=== PATIENT | female | born 1940 | race Caucasian/White ===

== ENCOUNTER 2018-01-13 10:01 | Outpatient (CLI) | payer BC | END 2018-01-13 10:02 | disposition home or self-care (01) | LOC: BICMAMMO 10:01 | PROVIDERS: ATTEND Internal Medicine Hematology & Oncology | DX: Z08 Encounter for follow-up examination after completed treatment for malignant neoplasm (principal); Z85.3 Personal history of malignant neoplasm of breast | CPT/HCPCS: 77066; G0279 ==

== ENCOUNTER 2018-01-29 08:16 | Outpatient (CLI) | payer BC, MEDICARE | END 2018-01-29 08:17 | disposition home or self-care (01) | LOC: BICMAMMO 08:16 | PROVIDERS: ATTEND Family Medicine | DX: M85.869 Other specified disorders of bone density and structure, unspecified lower leg (principal) | CPT/HCPCS: 77080 ==

== ENCOUNTER 2018-11-09 11:47 | Outpatient (CLI) | payer BC ==
--- NOTE | 2018-11-09 14:05 | RAD ---
RADIOGRAPH LEFT ANKLE 3 VIEWS: Date: 11/09/18 HISTORY: 78-year-old female with acute left ankle pain, M25.572, status post twisting injury 9 days ago. Persi stent swelling. FINDINGS: No evidence of fracture. Ankle mortise is congruent. Diffuse soft tissue edema. Talar dome is maintai igor. Mild DJD. IMPRESSION: 1. No fracture. 2. Diffuse soft tissue edema. POS: JERILYN
== END 2018-11-09 11:48 | disposition home or self-care (01) ==
LOC: BICRAD 11:47
PROVIDERS: ATTEND Family Medicine
DX: M25.572 Pain in left ankle and joints of left foot (principal); R60.9 Edema, unspecified

== ENCOUNTER 2019-01-14 10:16 | Outpatient (CLI) | payer BC ==
--- NOTE | 2019-01-14 11:12 | MMO ---
Bilateral MAMMO Bilat Diag [facility]. CLINICAL HISTORY: Patient is 78 years old and is seen for diagnostic exam. The patient has no family history of breast cancer. 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 VIEWS: The views performed were: bilateral craniocaudal with tomosynthesis; bilateral mediolateral oblique with tomosynthesis; and bilateral mediolateral. FILMS COMPARED: The present examination has been compared to prior imaging studies performed at on 01/09/2017 and 01/13/2018. MAMMOGRAM FINDINGS: There are scattered fibroglandular densities. There is an area of architectural distortion with associated post-surgical scar seen in the right breast. There are no suspicious masses, suspicious calcifications, or new areas of architectural distortion. IMPRESSION: A ROUTINE FOLLOW-UP MAMMOGRAM IN 1 YEAR IS RECOMMENDED. THE RESULTS OF THIS EXAM WERE SENT TO THE PATIENT. ACR BI-RADS Category 2 - Benign finding MAMMOGRAPHY NOTE: 1. A negative mammogram report should not delay a biopsy if a dominant of clinically suspicious mass is present. 2. Approximately 10% to 15% of breast cancers are not detected by mammography. 3. Adenosis and dense breasts may obscure an underlying neoplasm.
== END 2019-01-14 10:17 | disposition home or self-care (01) ==
LOC: BICMAMMO 10:16
PROVIDERS: ATTEND Family Medicine
DX: C50.811 Malignant neoplasm of overlapping sites of right female breast (principal)
CPT/HCPCS: 77066; G0279

== ENCOUNTER 2020-01-17 | Outpatient (CLI) | payer MEDICARE, BC | END 2020-01-17 09:19 | disposition home or self-care (01) | DX: C50.811 Malignant neoplasm of overlapping sites of right female breast (principal) ==

== ENCOUNTER 2021-01-18 08:16 | Outpatient (CLI) | payer MEDICARE, BC | END 2021-01-18 08:17 | disposition home or self-care (01) | LOC: BICMAMMO 08:16 | PROVIDERS: ATTEND Family Medicine | DX: Z08 Encounter for follow-up examination after completed treatment for malignant neoplasm (principal); Z85.3 Personal history of malignant neoplasm of breast | CPT/HCPCS: 77066; G0279 ==

== ENCOUNTER 2021-01-19 17:21 | Inpatient (IN) | payer MEDICARE, BC ==
[~2021-01-19 17:21] MED LIST: Iopamidol-370 76% 500 ML 1 ML ONE
[2021-01-19 19:01] LABS: #Lymphocytes 0.8 thou/uL (1.20-3.40); #Monocytes 0.7 thou/uL (0.11-0.59); #Neutrophils 14.5 thou/uL (1.40-6.50); %Eosinophils 0.1 % (0.0-10.0); %Lymphocytes 5.1 % (21.0-51.0); %Monocytes 4.6 % (0.0-10.0); %Neutrophils 90.2 % (42.0-75.0); Hemoglobin 14.4 g/dL (12.0-16.0); Mean Corpuscular HGB CONC 36.1 g/dL (32.0-36.0); Mean Corpuscular Hemoglobin 34.3 pg (27.0-31.0); Mean Platelet Volume 6.2 fL (7.4-10.4); Platelet Count 301 thou/uL (130-400); RBC Distribution Width 11.1 % (11.5-14.5)
[2021-01-19 19:24] LABS: ALT (SGPT) 19 U/L (8-55); AST (SGOT) 26 U/L (5-34); Albumin 3.7 g/dL (3.4-4.8); Alkaline Phosphatase 73 U/L (40-110); Anion Gap 12 mmol/L (10-20); BUN (Urea Nitrogen) 9 mg/dL (9.8-20.1); Bilirubin, Total 0.6 mg/dL (0.2-1.2); Calc. Creatinine Clearance 0 mL/min (70-130); Calcium 8.6 mg/dL (7.8-10.44); Carbon Dioxide 24 mmol/L (23-31); Chloride 89 mmol/L (98-107); Globulin 2.8 g/dL (2.4-3.5); Glucose 132 mg/dL (83-110); Magnesium 1.8 mg/dL (1.6-2.6); Potassium 3.9 mmol/L (3.5-5.1); Protein, Total 6.5 g/dL (5.8-8.1); Sodium 121 mmol/L (136-145)
[2021-01-19 19:53] LABS: Bacteria/HPF 2+ HPF (None Seen); Bilirubin Negative (Negative); Blood, Urine Negative (Negative); Clarity Clear (Clear); Glucose, Urine (Dipstick) 30 mg/dL (Negative); Ketone, Urine 20 mg/dL (Negative); Leukocyte 500 Leu/uL (Negative); Nitrite Negative (Negative); Protein, Urine (Dipstick) Negative (Neg-Trace); RBC/HPF 0-3 HPF (0-3); Specific Gravity, Urine 1.006 (1.002-1.036); Urobilinogen Normal mg/dL (Less than 2); pH, Urine 7.5 (5.0-9.0)
[2021-01-19] MEDS ORDERED: Ondansetron PF 4 MG/2 ML Vial IVP PRN (20:33)
[2021-01-19] MEDS ORDERED: HYDROcodone/Acetaminophen 7.5/325 mg Tablet PO PRN (20:33)
[2021-01-19] MEDS ORDERED: Bisacodyl 5 MG TAB PO PRN (20:33)
[2021-01-19] MEDS ORDERED: Morphine 2 MG/ML VIAL SLOW IVP PRN (20:34)
[2021-01-19] MEDS ORDERED: TOLVAPTAN 30 MG TAB PO SCH (21:15)
[2021-01-19] MEDS ORDERED: cefTRIAXone\\ROCEPHIN 2 GM VIAL ONE (21:29)
[2021-01-19] MEDS ORDERED: Vancomycin 1 GM/200 ML BAG ONE (21:29)
[2021-01-19 21:50] LABS: SARS-CoV-2 NAA Rapid Test Not Detected (NotDetected)
[2021-01-19 23:34] VITALS: BMI 21.9
[2021-01-19] MEDS: Sodium Chloride 0.9% 1,000 ML IV SCH (23:38)
[2021-01-19] MEDS: Cefepime 1 GM in Sodium Chloride 0.9% 100 ML IVPB SCH (23:40)
[2021-01-19] MEDS: Apixaban 5 MG TAB PO SCH (23:42)
[2021-01-20 00:24] LABS: Potassium, Urine 18.9 mmol/L
[2021-01-20 04:03] LABS: Albumin 3.6 g/dL (3.4-4.8); Anion Gap 12 mmol/L (10-20); BUN (Urea Nitrogen) 6 mg/dL (9.8-20.1); BUN/Creatinine Ratio 10.53; Calc. Creatinine Clearance 73 mL/min (70-130); Calcium 8.6 mg/dL (7.8-10.44); Carbon Dioxide 21 mmol/L (23-31); Chloride 94 mmol/L (98-107); Glucose 124 mg/dL (83-110); Phosphorus 2.7 mg/dL (2.3-4.7); Potassium 3.6 mmol/L (3.5-5.1); Sodium 123 mmol/L (136-145)
[2021-01-20] MEDS: Cefepime 1 GM in Sodium Chloride 0.9% 100 ML IVPB SCH ×2 (08:05→21:47)
[2021-01-20] MEDS: Apixaban 5 MG TAB PO SCH ×2 (08:05→21:46)
[2021-01-20] MEDS: Famotidine 20 MG TAB PO SCH ×2 (08:05→21:47)
[2021-01-20] MEDS ORDERED: TOLVAPTAN 30 MG TAB PO SCH (09:00)
[2021-01-20 09:54] LABS: Anion Gap 14 mmol/L (10-20); BUN (Urea Nitrogen) 5 mg/dL (9.8-20.1); Calc. Creatinine Clearance 65 mL/min (70-130); Calcium 9.1 mg/dL (7.8-10.44); Carbon Dioxide 23 mmol/L (23-31); Chloride 95 mmol/L (98-107); Glucose 128 mg/dL (83-110); Potassium 3.3 mmol/L (3.5-5.1); Sodium 129 mmol/L (136-145)
[2021-01-20 13:30] LABS: Anion Gap 12 mmol/L (10-20); BUN (Urea Nitrogen) 5 mg/dL (9.8-20.1); Calc. Creatinine Clearance 63 mL/min (70-130); Calcium 8.8 mg/dL (7.8-10.44); Carbon Dioxide 25 mmol/L (23-31); Chloride 98 mmol/L (98-107); Glucose 136 mg/dL (83-110); Potassium 3.2 mmol/L (3.5-5.1); Sodium 132 mmol/L (136-145)
[2021-01-20] MEDS ORDERED: hydrALAZINE 20 MG/ML VIAL SLOW IVP PRN (14:06)
[2021-01-20] MEDS: Acetaminophen 325 MG TAB PO PRN (14:08)
[2021-01-20] MEDS: Sodium Chloride 0.9% 1,000 ML IV SCH (15:55)
[2021-01-20] MEDS ORDERED: Potassium Chloride 20 MEQ TAB PO SCH (16:00)
[2021-01-20] MEDS ORDERED: Dextrose 5% in Water 1,000 ML IV SCH ×3 (16:00→21:43)
[2021-01-20] MEDS ORDERED: Carvedilol 3.125 MG TAB PO SCH (17:00)
[2021-01-20 17:29] LABS: Anion Gap 14 mmol/L (10-20); BUN (Urea Nitrogen) 4 mg/dL (9.8-20.1); Calc. Creatinine Clearance 66 mL/min (70-130); Carbon Dioxide 23 mmol/L (23-31); Chloride 98 mmol/L (98-107); Glucose 116 mg/dL (83-110); Sodium 132 mmol/L (136-145)
[2021-01-20 21:26] LABS: Anion Gap 13 mmol/L (10-20); BUN (Urea Nitrogen) 4 mg/dL (9.8-20.1); Calc. Creatinine Clearance 66 mL/min (70-130); Calcium 8.5 mg/dL (7.8-10.44); Carbon Dioxide 20 mmol/L (23-31); Chloride 105 mmol/L (98-107); Glucose 149 mg/dL (83-110); Potassium 3.5 mmol/L (3.5-5.1); Sodium 134 mmol/L (136-145)
[2021-01-20] MEDS: Potassium Chloride 20 MEQ TAB PO SCH (21:47)
[2021-01-20] MEDS: Zolpidem Tartrate 5 MG TAB PO PRN (21:47)
[2021-01-21] MEDS: Potassium Chloride 20 MEQ TAB PO SCH (00:12)
[2021-01-21 04:04] LABS: #Basophils 0.1 thou/uL (0.0-0.2); #Eosinphils 0.1 thou/uL (0.0-0.7); #Lymphocytes 1.5 thou/uL (1.20-3.40); #Monocytes 1.1 thou/uL (0.11-0.59); #Neutrophils 11.4 thou/uL (1.40-6.50); %Basophils 0.4 % (0.0-1.0); %Eosinophils 0.4 % (0.0-10.0); %Lymphocytes 10.3 % (21.0-51.0); %Neutrophils 80.8 % (42.0-75.0); Hemoglobin 14.6 g/dL (12.0-16.0); Mean Corpuscular HGB CONC 34.4 g/dL (32.0-36.0); Mean Corpuscular Hemoglobin 33.3 pg (27.0-31.0); Mean Corpuscular Volume 96.8 fL (78.0-98.0); Mean Platelet Volume 6.7 fL (7.4-10.4); Platelet Count 299 thou/uL (130-400); RBC Distribution Width 11.4 % (11.5-14.5); Red Blood Cell (RBC) Count 4.37 mill/uL (4.20-5.40); White Blood Cell (WBC) Count 14.1 thou/uL (4.8-10.8)
[2021-01-21 04:23] LABS: Anion Gap 11 mmol/L (10-20); BUN (Urea Nitrogen) 5 mg/dL (9.8-20.1); Calc. Creatinine Clearance 68 mL/min (70-130); Carbon Dioxide 24 mmol/L (23-31); Chloride 102 mmol/L (98-107); Glucose 105 mg/dL (83-110); Magnesium 1.9 mg/dL (1.6-2.6); Potassium 4.4 mmol/L (3.5-5.1); Sodium 133 mmol/L (136-145)
[2021-01-21] MEDS ORDERED: Amlodipine 5 MG TAB PO SCH ×2 (09:00→10:15)
[2021-01-21] MEDS: Carvedilol 6.25 MG TAB PO SCH ×2 (09:14→17:26)
[2021-01-21] MEDS: Famotidine 20 MG TAB PO SCH ×2 (09:15→21:34)
[2021-01-21] MEDS: Cefepime 1 GM in Sodium Chloride 0.9% 100 ML IVPB SCH (09:15)
[2021-01-21] MEDS: Apixaban 5 MG TAB PO SCH ×2 (09:15→21:35)
[2021-01-21] MEDS: Acetaminophen 325 MG TAB PO PRN (14:09)
[2021-01-21 15:21] LABS: Anion Gap 12 mmol/L (10-20); BUN (Urea Nitrogen) 5 mg/dL (9.8-20.1); Calc. Creatinine Clearance 66 mL/min (70-130); Calcium 9.5 mg/dL (7.8-10.44); Carbon Dioxide 27 mmol/L (23-31); Chloride 93 mmol/L (98-107); Glucose 132 mg/dL (83-110); Potassium 4.1 mmol/L (3.5-5.1); Sodium 128 mmol/L (136-145)
[2021-01-21] MEDS: Ciprofloxacin 500 MG TAB PO SCH (21:34)
[2021-01-21] MEDS: Zolpidem Tartrate 5 MG TAB PO PRN (21:35)
[2021-01-22] MEDS: Ciprofloxacin 500 MG TAB PO SCH ×2 (06:07→21:33)
[2021-01-22 06:15] LABS: #Eosinphils 0.1 thou/uL (0.0-0.7); #Lymphocytes 1.2 thou/uL (1.20-3.40); #Monocytes 1.2 thou/uL (0.11-0.59); #Neutrophils 11.7 thou/uL (1.40-6.50); %Basophils 0.1 % (0.0-1.0); %Eosinophils 0.6 % (0.0-10.0); %Lymphocytes 8.6 % (21.0-51.0); %Monocytes 8.7 % (0.0-10.0); Mean Corpuscular HGB CONC 34.3 g/dL (32.0-36.0); Mean Corpuscular Hemoglobin 32.9 pg (27.0-31.0); Mean Platelet Volume 6.4 fL (7.4-10.4); Platelet Count 302 thou/uL (130-400); RBC Distribution Width 11.2 % (11.5-14.5); Red Blood Cell (RBC) Count 4.26 mill/uL (4.20-5.40); White Blood Cell (WBC) Count 14.3 thou/uL (4.8-10.8)
[2021-01-22 06:51] LABS: Anion Gap 12 mmol/L (10-20); BUN (Urea Nitrogen) 9 mg/dL (9.8-20.1); Calc. Creatinine Clearance 53 mL/min (70-130); Calcium 8.9 mg/dL (7.8-10.44); Carbon Dioxide 22 mmol/L (23-31); Chloride 93 mmol/L (98-107); Glucose 109 mg/dL (83-110); Potassium 3.8 mmol/L (3.5-5.1); Sodium 123 mmol/L (136-145)
[2021-01-22] MEDS: Apixaban 5 MG TAB PO SCH ×2 (08:07→21:33)
[2021-01-22] MEDS: Amlodipine 10 MG TAB PO SCH (08:07)
[2021-01-22] MEDS: Famotidine 20 MG TAB PO SCH ×2 (08:07→21:33)
[2021-01-22] MEDS: Carvedilol 6.25 MG TAB PO SCH ×2 (08:07→15:40)
[2021-01-22] MEDS: Zolpidem Tartrate 5 MG TAB PO PRN (21:35)
[2021-01-23 05:37] LABS: #Basophils 0.1 thou/uL (0.0-0.2); #Eosinphils 0.1 thou/uL (0.0-0.7); #Lymphocytes 1.4 thou/uL (1.20-3.40); #Monocytes 1.1 thou/uL (0.11-0.59); #Neutrophils 7.2 thou/uL (1.40-6.50); %Eosinophils 0.9 % (0.0-10.0); %Lymphocytes 13.9 % (21.0-51.0); %Monocytes 10.7 % (0.0-10.0); %Neutrophils 73.6 % (42.0-75.0); Hemoglobin 13.9 g/dL (12.0-16.0); Mean Corpuscular HGB CONC 35.8 g/dL (32.0-36.0); Mean Corpuscular Hemoglobin 34.3 pg (27.0-31.0); Mean Corpuscular Volume 95.9 fL (78.0-98.0); Mean Platelet Volume 6.5 fL (7.4-10.4); Platelet Count 304 thou/uL (130-400); RBC Distribution Width 11.2 % (11.5-14.5); Red Blood Cell (RBC) Count 4.05 mill/uL (4.20-5.40); White Blood Cell (WBC) Count 9.8 thou/uL (4.8-10.8)
[2021-01-23] MEDS: Ciprofloxacin 500 MG TAB PO SCH ×2 (06:06→21:24)
[2021-01-23 06:07] LABS: ALT (SGPT) 17 U/L (8-55); AST (SGOT) 19 U/L (5-34); Albumin 3.2 g/dL (3.4-4.8); Alkaline Phosphatase 78 U/L (40-110); Anion Gap 10 mmol/L (10-20); BUN (Urea Nitrogen) 17 mg/dL (9.8-20.1); Bilirubin, Total 0.6 mg/dL (0.2-1.2); Calc. Creatinine Clearance 33 mL/min (70-130); Calcium 8.6 mg/dL (7.8-10.44); Carbon Dioxide 25 mmol/L (23-31); Chloride 94 mmol/L (98-107); Globulin 2.6 g/dL (2.4-3.5); Glucose 113 mg/dL (83-110); Magnesium 1.7 mg/dL (1.6-2.6); Potassium 3.9 mmol/L (3.5-5.1); Protein, Total 5.8 g/dL (5.8-8.1); Sodium 125 mmol/L (136-145)
[2021-01-23] MEDS: Carvedilol 6.25 MG TAB PO SCH ×2 (08:12→15:49)
[2021-01-23] MEDS: Famotidine 20 MG TAB PO SCH ×2 (08:12→21:24)
[2021-01-23] MEDS: Apixaban 5 MG TAB PO SCH ×2 (08:12→21:24)
[2021-01-23] MEDS: Amlodipine 10 MG TAB PO SCH (08:12)
[2021-01-23 20:14] VITALS: TEMP 97.9
[2021-01-23] MEDS: Zolpidem Tartrate 5 MG TAB PO PRN (21:25)
[2021-01-23] MEDS: Sodium Chloride 0.9% 1,000 ML IV SCH (22:01)
[2021-01-24] MEDS: Ciprofloxacin 500 MG TAB PO SCH (05:26)
[2021-01-24] MEDS: Sodium Chloride 0.9% 1,000 ML IV SCH (05:26)
[2021-01-24 06:25] LABS: Anion Gap 14 mmol/L (10-20); BUN (Urea Nitrogen) 28 mg/dL (9.8-20.1); Calc. Creatinine Clearance 24 mL/min (70-130); Calcium 8.6 mg/dL (7.8-10.44); Carbon Dioxide 21 mmol/L (23-31); Chloride 100 mmol/L (98-107); Glucose 100 mg/dL (83-110); Potassium 4.1 mmol/L (3.5-5.1); Sodium 131 mmol/L (136-145)
[2021-01-24 07:20] VITALS: BP 144/68
[2021-01-24] MEDS: Apixaban 5 MG TAB PO SCH (08:29)
[2021-01-24] MEDS: Amlodipine 10 MG TAB PO SCH (08:30)
[2021-01-24] MEDS: Carvedilol 6.25 MG TAB PO SCH (08:30)
[2021-01-24] MEDS: Famotidine 20 MG TAB PO SCH (08:30)
[2021-01-24 13:16] LABS: Anion Gap 13 mmol/L (10-20); BUN (Urea Nitrogen) 29 mg/dL (9.8-20.1); Calc. Creatinine Clearance 24 mL/min (70-130); Calcium 8.4 mg/dL (7.8-10.44); Carbon Dioxide 19 mmol/L (23-31); Chloride 103 mmol/L (98-107); Glucose 99 mg/dL (83-110); Potassium 4.3 mmol/L (3.5-5.1); Sodium 131 mmol/L (136-145)
[2021-01-25] MEDS ORDERED: Famotidine 20 MG TAB PO SCH (09:00)
== END 2021-01-24 16:24 | disposition home or self-care (01) | DRG 643 ==
LOC: ERS 17:21 → IMCU/EMU 20:26 → T4-A 01-21 13:03
PROVIDERS: ADMIT Internal Medicine; ATTEND Internal Medicine
DX: E22.2 Syndrome of inappropriate secretion of antidiuretic hormone (principal); I26.99 Other pulmonary embolism without acute cor pulmonale; S22.029A Unspecified fracture of second thoracic vertebra, initial encounter for closed fracture; N30.00 Acute cystitis without hematuria; N17.9 Acute kidney failure, unspecified; E87.2 Acidosis; Z20.822 Contact with and (suspected) exposure to COVID-19; I10 Essential (primary) hypertension; F41.9 Anxiety disorder, unspecified; K21.9 Gastro-esophageal reflux disease without esophagitis; I34.0 Nonrheumatic mitral (valve) insufficiency; F32.9 Major depressive disorder, single episode, unspecified; W18.30XA Fall on same level, unspecified, initial encounter; Y92.002 Bathroom of unspecified non-institutional (private) residence as the place of occurrence of the external cause; Z85.3 Personal history of malignant neoplasm of breast; Z92.3 Personal history of irradiation; Z79.899 Other long term (current) drug therapy; Z79.52 Long term (current) use of systemic steroids; Z79.01 Long term (current) use of anticoagulants
CPT/HCPCS: 36415; 70450; 71275; 80048; 80053; 80069; 81003; 81015; 83735; 83930; 83935; 84133; 84300; 84443; 84550; 85025; 93005; 93306; 96365; 96367; J0692; J0696; J3370; J3490; Q9967; U0002; U0005

== ENCOUNTER 2021-10-07 16:34 | Emergency (ER) | payer MEDICARE, BC ==
[2021-10-07 17:25] LABS: #Basophils 0.1 thou/uL (0.0-0.2); #Eosinphils 0.1 thou/uL (0.0-0.7); #Lymphocytes 1.5 thou/uL (1.20-3.40); #Monocytes 0.7 thou/uL (0.11-0.59); #Neutrophils 6.4 thou/uL (1.40-6.50); %Basophils 0.6 % (0.0-1.0); %Eosinophils 0.9 % (0.0-10.0); %Lymphocytes 17.7 % (21.0-51.0); %Monocytes 8.2 % (0.0-10.0); %Neutrophils 72.6 % (42.0-75.0); Hemoglobin 14.8 g/dL (12.0-16.0); Mean Corpuscular HGB CONC 33.9 g/dL (32.0-36.0); Mean Corpuscular Hemoglobin 33.4 pg (27.0-31.0); Mean Corpuscular Volume 98.5 fL (78.0-98.0); Platelet Count 261 thou/uL (130-400); RBC Distribution Width 11.1 % (11.5-14.5); Red Blood Cell (RBC) Count 4.43 mill/uL (4.20-5.40); White Blood Cell (WBC) Count 8.7 thou/uL (4.8-10.8)
[2021-10-07 18:09] LABS: ALT (SGPT) 20 U/L (8-55); AST (SGOT) 34 U/L (5-34); Alkaline Phosphatase 61 U/L (40-110); Anion Gap 15 mmol/L (10-20); BUN (Urea Nitrogen) 16 mg/dL (9.8-20.1); Bilirubin, Total 0.6 mg/dL (0.2-1.2); CK (CPK) 51 U/L (29-168); Calc. Creatinine Clearance 0 mL/min (70-130); Calcium 9.4 mg/dL (7.8-10.44); Carbon Dioxide 21 mmol/L (23-31); Chloride 97 mmol/L (98-107); Globulin 3.4 g/dL (2.4-3.5); Glucose 130 mg/dL (83-110); Magnesium 1.9 mg/dL (1.6-2.6); Potassium 4.1 mmol/L (3.5-5.1); Protein, Total 7.4 g/dL (5.8-8.1); Sodium 129 mmol/L (136-145)
== END 2021-10-07 19:00 | disposition home or self-care (01) ==
LOC: ERS 16:34
DX: R00.2 Palpitations (principal); K21.9 Gastro-esophageal reflux disease without esophagitis; I10 Essential (primary) hypertension; Z79.899 Other long term (current) drug therapy
CPT/HCPCS: 36415; 71045; 80053; 82550; 83735; 84443; 84484; 85025; 85379; 93005

== ENCOUNTER 2022-03-06 10:12 | Outpatient (CLI) | payer MEDICARE, BC | END 2022-03-06 10:13 | disposition home or self-care (01) | LOC: BICMAMMO 10:12 | PROVIDERS: ATTEND Family Medicine | DX: Z12.31 Encounter for screening mammogram for malignant neoplasm of breast (principal); C50.811 Malignant neoplasm of overlapping sites of right female breast; Z85.3 Personal history of malignant neoplasm of breast; Z98.890 Other specified postprocedural states | CPT/HCPCS: 77066; G0279 ==

== ENCOUNTER 2022-07-15 19:14 | Inpatient (IN) | payer MEDICARE, BC ==
[2022-07-15 20:05] LABS: #Eosinphils 0.3 thou/uL (0.0-0.7); #Lymphocytes 1.3 thou/uL (1.20-3.40); #Monocytes 0.9 thou/uL (0.11-0.59); #Neutrophils 8.4 thou/uL (1.40-6.50); %Basophils 0.3 % (0.0-1.0); %Eosinophils 2.4 % (0.0-10.0); %Lymphocytes 11.8 % (21.0-51.0); %Monocytes 8.1 % (0.0-10.0); %Neutrophils 77.4 % (42.0-75.0); Mean Corpuscular HGB CONC 34.8 g/dL (32.0-36.0); Mean Corpuscular Hemoglobin 34.8 pg (27.0-31.0); Mean Platelet Volume 6.7 fL (7.4-10.4); Platelet Count 315 10x3/uL (130-400); RBC Distribution Width 11.5 % (11.5-14.5); Red Blood Cell (RBC) Count 4.01 mill/uL (4.20-5.40); White Blood Cell (WBC) Count 10.9 10x3/uL (4.8-10.8)
[2022-07-15 20:17] LABS: PTT 23.6 sec (22.9-36.1); Prothrombin Time 13.1 sec (12.0-14.7)
[2022-07-15 20:37] LABS: ALT (SGPT) 43 U/L (8-55); AST (SGOT) 41 U/L (5-34); Albumin 3.4 g/dL (3.4-4.8); Alkaline Phosphatase 218 U/L (40-110); Anion Gap 12 mmol/L (10-20); BUN (Urea Nitrogen) 15 mg/dL (9.8-20.1); Bilirubin, Total 0.5 mg/dL (0.2-1.2); CK (CPK) 88 U/L (29-168); Calc. Creatinine Clearance 0 mL/min (70-130); Calcium 8.5 mg/dL (7.8-10.44); Carbon Dioxide 22 mmol/L (23-31); Chloride 99 mmol/L (98-107); Estimated GFR 86; Glucose 155 mg/dL (83-110); Potassium 4.1 mmol/L (3.5-5.1); Sodium 129 mmol/L (136-145)
[2022-07-15 21:23] LABS: Globulin 2.7 g/dL (2.4-3.5); Protein, Total 6.1 g/dL (5.8-8.1)
[2022-07-15] MEDS ORDERED: Sodium Chloride 0.9% 1,000 ML IV SCH (23:45)
[2022-07-15] MEDS ORDERED: Insulin Regular 300 UNITS/3 ML VIAL SC PRN (23:54)
[2022-07-15] MEDS ORDERED: TETANUS, DIPHTHERIA TOX,ADULT (TDVAX) 0.5 ML VIAL IM ONE (23:54)
[2022-07-15] MEDS ORDERED: Dextrose 50% Abboject 50 ML SYRINGE SLOW IVP PRN (23:54)
[2022-07-15] MEDS ORDERED: Ondansetron PF 4 MG/2 ML Vial IVP PRN (23:54)
[2022-07-15] MEDS ORDERED: Dextrose 5% in Water 1,000 ML IV PRN (23:54)
[2022-07-15] MEDS ORDERED: Cyclobenzaprine 10 MG TAB PO PRN (23:58)
[2022-07-15] MEDS ORDERED: Ibuprofen 600 MG TAB PO PRN (23:58)
[2022-07-16] MEDS ORDERED: Morphine 4 MG/ML VIAL SLOW IVP PRN (00:03)
[2022-07-16] MEDS ORDERED: Sodium Chloride 1 GM TAB PO SCH (00:30)
[2022-07-16] MEDS ORDERED: Boostrix 0.5 ML (Tdap) VIAL (>/=7 yrs of age) ONE (01:35)
[2022-07-16] MEDS ORDERED: Acetaminophen 500 MG TAB ONE ×2 (01:35→06:05)
[2022-07-16] MEDS: Acetaminophen 500 MG TAB PO SCH ×2 (01:52→06:00)
[2022-07-16 03:22] LABS: SARS-CoV-2 NAA Rapid Test Not Detected (NotDetected)
[2022-07-16 05:41] LABS: #Eosinphils 0.2 thou/uL (0.0-0.7); #Lymphocytes 1.6 thou/uL (1.20-3.40); #Monocytes 0.9 thou/uL (0.11-0.59); #Neutrophils 6.9 thou/uL (1.40-6.50); %Basophils 0.3 % (0.0-1.0); %Eosinophils 2.5 % (0.0-10.0); %Lymphocytes 16.7 % (21.0-51.0); %Monocytes 9.6 % (0.0-10.0); Hemoglobin 13.1 g/dL (12.0-16.0); Mean Corpuscular HGB CONC 34.4 g/dL (32.0-36.0); Mean Corpuscular Hemoglobin 34.4 pg (27.0-31.0); Mean Corpuscular Volume 99.9 fl (78.0-98.0); Mean Platelet Volume 6.7 fL (7.4-10.4); Platelet Count 318 10x3/uL (130-400); RBC Distribution Width 11.7 % (11.5-14.5); Red Blood Cell (RBC) Count 3.82 mill/uL (4.20-5.40); White Blood Cell (WBC) Count 9.8 10x3/uL (4.8-10.8)
[2022-07-16 06:09] LABS: Anion Gap 10 mmol/L (10-20); BUN (Urea Nitrogen) 17 mg/dL (9.8-20.1); Calc. Creatinine Clearance 0 mL/min (70-130); Calcium 9.2 mg/dL (7.8-10.44); Carbon Dioxide 24 mmol/L (23-31); Chloride 98 mmol/L (98-107); Estimated GFR 88; Glucose 101 mg/dL (83-110); Phosphorus 3.3 mg/dL (2.3-4.7); Potassium 4.1 mmol/L (3.5-5.1); Sodium 128 mmol/L (136-145)
[2022-07-16] MEDS: Sodium Chloride 1 GM TAB PO SCH ×3 (06:39→20:36)
[2022-07-16] MEDS ORDERED: Carvedilol 6.25 MG TAB PO SCH (08:00)
[2022-07-16] MEDS ORDERED: Famotidine 20 MG TAB ONE (09:26)
[2022-07-16] MEDS: Carvedilol 6.25 MG TAB PO SCH ×2 (09:49→18:23)
[2022-07-16] MEDS: Polyethylene Glycol 3350 17 GM Packet PO SCH (09:50)
[2022-07-16] MEDS: Senokot S 8.6-50 MG TAB PO SCH ×2 (09:50→20:36)
[2022-07-16] MEDS: Famotidine 20 MG TAB PO SCH ×2 (09:50→20:36)
[2022-07-16] MEDS ORDERED: Acetaminophen/Codeine 30-300mg Tablet PO PRN (10:27)
[2022-07-16] MEDS ORDERED: Acetaminophen 325 MG TAB ONE ×2 (13:20)
[2022-07-16] MEDS: Acetaminophen 325 MG TAB PO SCH ×3 (13:22→23:38)
[2022-07-16] MEDS: Gabapentin 100 MG CAP PO SCH ×2 (15:00→20:36)
[2022-07-16 15:35] VITALS: BMI 23.6
[2022-07-16 17:46] LABS: Bacteria/HPF 3+ HPF (None Seen); Bilirubin Negative (Negative); Blood, Urine Negative (Negative); CAUTI Indications for Culture Pelvic or flank pain; Clarity Turbid (Clear); Glucose, Urine (Dipstick) Normal (Negative); Ketone, Urine Negative (Negative); Leukocyte 500 Leu/uL (Negative); Nitrite Negative (Negative); Protein, Urine (Dipstick) Negative (Neg-Trace); RBC/HPF 0-3 HPF (0-3); Specific Gravity, Urine 1.009 (1.002-1.036); Squamous Epithelial 0-3 HPF (0-3); Urobilinogen Normal mg/dL (Less than 2); WBC/HPF Greater than 50 HPF (0-3); pH, Urine 6.5 (5.0-9.0)
[2022-07-16 17:48] LABS: Urine Culture Reflex Yes Yes
[2022-07-16] MEDS ORDERED: Montelukast Sodium 10 mg Tablet PO SCH (21:00)
[2022-07-17] MEDS: Sodium Chloride 1 GM TAB PO SCH (05:13)
[2022-07-17] MEDS: Acetaminophen 325 MG TAB PO SCH ×2 (05:13→12:38)
[2022-07-17 06:35] LABS: #Eosinphils 0.4 thou/uL (0.0-0.7); #Monocytes 0.7 thou/uL (0.11-0.59); #Neutrophils 6.2 thou/uL (1.40-6.50); %Basophils 0.6 % (0.0-1.0); %Eosinophils 4.5 % (0.0-10.0); %Lymphocytes 12.1 % (21.0-51.0); %Monocytes 8.1 % (0.0-10.0); %Neutrophils 74.8 % (42.0-75.0); Hemoglobin 14.3 g/dL (12.0-16.0); Mean Platelet Volume 6.2 fL (7.4-10.4); Platelet Count 353 10x3/uL (130-400); RBC Distribution Width 11.6 % (11.5-14.5); Red Blood Cell (RBC) Count 4.32 mill/uL (4.20-5.40); White Blood Cell (WBC) Count 8.3 10x3/uL (4.8-10.8)
[2022-07-17 06:58] LABS: Anion Gap 11 mmol/L (10-20); BUN (Urea Nitrogen) 13 mg/dL (9.8-20.1); Calc. Creatinine Clearance 69 mL/min (70-130); Carbon Dioxide 25 mmol/L (23-31); Chloride 103 mmol/L (98-107); Estimated GFR 89; Glucose 98 mg/dL (83-110); Phosphorus 3.1 mg/dL (2.3-4.7); Potassium 4.1 mmol/L (3.5-5.1); Sodium 135 mmol/L (136-145)
[2022-07-17] MEDS ORDERED: Ciprofloxacin 500 MG TAB PO SCH ×2 (08:30→20:00)
[2022-07-17] MEDS ORDERED: Ascorbic Acid 500 mg Chewable Tablet PO SCH (09:00)
[2022-07-17] MEDS: Carvedilol 6.25 MG TAB PO SCH (09:31)
[2022-07-17] MEDS: Senokot S 8.6-50 MG TAB PO SCH (09:31)
[2022-07-17] MEDS: Polyethylene Glycol 3350 17 GM Packet PO SCH (09:32)
[2022-07-17] MEDS: Gabapentin 100 MG CAP PO SCH (09:38)
[2022-07-17 13:37] VITALS: BP 142/85; TEMP 97.7
[2022-07-17] MEDS ORDERED: Mirtazapine 15 MG Soltab PO SCH (21:00)
[2022-07-17] MEDS ORDERED: Atorvastatin Calcium 10 MG TAB PO SCH (21:00)
== END 2022-07-17 15:55 | disposition home or self-care (01) | DRG 552 ==
LOC: ERS 19:14 → ERHOLD 23:58 → SURG A 07-16 14:20
PROVIDERS: ADMIT Surgery; ATTEND Surgery
DX: S22.088A Other fracture of T11-T12 vertebra, initial encounter for closed fracture (principal); S32.512A Fracture of superior rim of left pubis, initial encounter for closed fracture; E87.1 Hypo-osmolality and hyponatremia; S32.10XA Unspecified fracture of sacrum, initial encounter for closed fracture; N39.0 Urinary tract infection, site not specified; K21.9 Gastro-esophageal reflux disease without esophagitis; I10 Essential (primary) hypertension; G47.00 Insomnia, unspecified; W18.30XA Fall on same level, unspecified, initial encounter; Z79.01 Long term (current) use of anticoagulants; Z79.899 Other long term (current) drug therapy
CPT/HCPCS: 36415; 70450; 71045; 72125; 72170; 74177; 80048; 80053; 81001; 82550; 83735; 84100; 84146; 84484; 85025; 85610; 85730; 87077; 87086; 87186; 90714; 90715; 93005; 93306; 93880; 95816; 95819; 95957; J7050; Q9967

== ENCOUNTER 2023-04-16 10:27 | Outpatient (CLI) | payer MEDICARE, BC | END 2023-04-16 10:28 | disposition home or self-care (01) | LOC: BICMAMMO 10:27 | PROVIDERS: ATTEND Family Medicine | DX: Z12.31 Encounter for screening mammogram for malignant neoplasm of breast (principal); Z91.89 Other specified personal risk factors, not elsewhere classified; Z98.890 Other specified postprocedural states | CPT/HCPCS: 77063; 77067 ==

== ENCOUNTER 2025-05-02 09:26 | Outpatient (CLI) | payer MEDICARE | END 2025-05-02 09:27 | disposition home or self-care (01) | LOC: BICMAMMO 09:26 | PROVIDERS: ATTEND Family Medicine | DX: Z12.31 Encounter for screening mammogram for malignant neoplasm of breast (principal); Z78.0 Asymptomatic menopausal state; M81.0 Age-related osteoporosis without current pathological fracture; Z85.3 Personal history of malignant neoplasm of breast; Z98.890 Other specified postprocedural states | CPT/HCPCS: 77063; 77067; 77080 ==